=== PATIENT | male | born 1960 | race Caucasian/White ===

== ENCOUNTER → 2016-05-27 | Outpatient (REF) | payer BC | LOC: M SFHCLACO 08:08 | PROVIDERS: ATTEND Physician Assistant | DX: E78.2 Mixed hyperlipidemia (principal); K51.90 Ulcerative colitis, unspecified, without complications; Z53.8 Procedure and treatment not carried out for other reasons ==

== ENCOUNTER → 2017-02-03 | Outpatient (REF) | payer BC ==
[2017-02-03 14:42] LABS: MEAN CORPUSCULAR HGB CONC 33.5 g/dl (32.0-36.5); MEAN CORPUSCULAR VOLUME 95.7 fl (80.0-96.0); RED CELL DISTRIBUTION WIDTH 12.6 % (11.5-14.5); WHITE BLOOD COUNT 9.6 K/mm3 (4.0-10.0)
[2017-02-03 14:55] LABS: ALBUMIN/GLOBULIN RATIO 1.29 (1.00-1.93); ALKALINE PHOSPHATASE 59 U/L (45-117); ALT/SGPT 46 U/L (12-78); ANION GAP 8 MEQ/L (8-16); AST/SGOT 15 U/L (15-37); BILIRUBIN,TOTAL 0.5 MG/DL (0.2-1.0); BLOOD UREA NITROGEN 16 MG/DL (7-18); CALCIUM LEVEL 8.2 MG/DL (8.5-10.1); CARBON DIOXIDE LEVEL 26 MEQ/L (21-32); CHLORIDE LEVEL 109 MEQ/L (98-107); CHOLESTEROL LEVEL 141 MG/DL (<200); CREATININE FOR GFR 0.61 MG/DL (0.70-1.30); GLOMERULAR FILTRATION RATE > 60.0 (>56); GLUCOSE, FASTING 96 MG/DL (70-105); POTASSIUM SERUM 3.9 MEQ/L (3.5-5.1); SODIUM LEVEL 143 MEQ/L (136-145); TOTAL PROTEIN 7.1 GM/DL (6.4-8.2); TRIGLYCERIDES LEVEL 94 MG/DL (<150)
== END ==
LOC: M SFHCLACO 08:04
PROVIDERS: ATTEND Physician Assistant
DX: E78.2 Mixed hyperlipidemia (principal); K51.90 Ulcerative colitis, unspecified, without complications; Z12.5 Encounter for screening for malignant neoplasm of prostate
CPT/HCPCS: 80053; 80061; 85027; G0103

== ENCOUNTER → 2017-08-04 | Outpatient (REF) | payer BC ==
[2017-08-04 15:07] LABS: ALBUMIN/GLOBULIN RATIO 1.21 (1.00-1.93); ALKALINE PHOSPHATASE 58 U/L (45-117); ALT/SGPT 61 U/L (12-78); ANION GAP 8 MEQ/L (8-16); AST/SGOT 20 U/L (7-37); BILIRUBIN,TOTAL 0.6 MG/DL (0.2-1.0); BLOOD UREA NITROGEN 23 MG/DL (7-18); CALCIUM LEVEL 9.1 MG/DL (8.5-10.1); CARBON DIOXIDE LEVEL 31 MEQ/L (21-32); CHLORIDE LEVEL 105 MEQ/L (98-107); CHOLESTEROL LEVEL 168 MG/DL (<200); CREATININE FOR GFR 0.76 MG/DL (0.70-1.30); GLOMERULAR FILTRATION RATE > 60.0 (>56); GLUCOSE, FASTING 88 MG/DL (70-100); HDL CHOLESTEROL 32 MG/DL (>40); LDL CHOLESTEROL 94.4 MG/DL (<100); NON-HDL-C 136 MG/DL; POTASSIUM SERUM 4.4 MEQ/L (3.5-5.1); SODIUM LEVEL 144 MEQ/L (136-145); TOTAL PROTEIN 7.3 GM/DL (6.4-8.2); TRIGLYCERIDES LEVEL 208 MG/DL (<150)
== END ==
LOC: M SFHCLACO 08:02
DX: E78.2 Mixed hyperlipidemia (principal); K51.90 Ulcerative colitis, unspecified, without complications
CPT/HCPCS: 80053

== ENCOUNTER → 2018-10-12 | Outpatient (REF) | payer BC | LOC: M SFHCLERA 18:34 | PROVIDERS: ATTEND Physician Assistant | DX: L91.8 Other hypertrophic disorders of the skin (principal); C44.529 Squamous cell carcinoma of skin of other part of trunk ==

== ENCOUNTER → 2020-04-04 | Outpatient (REF) | payer BC ==
[2020-04-04 13:13] LABS: ALBUMIN 4.1 GM/DL (3.2-5.2); ALT/SGPT 63 U/L (12-78); BILIRUBIN,TOTAL 0.8 MG/DL (0.2-1.0); BLOOD UREA NITROGEN 17 MG/DL (7-18); CALCIUM LEVEL 9.1 MG/DL (8.8-10.2); CARBON DIOXIDE LEVEL 28 MEQ/L (21-32); CHLORIDE LEVEL 106 MEQ/L (98-107); CHOLESTEROL LEVEL 121 MG/DL (<200); CHOLESTEROL RISK RATIO 3.457 (<5); CREATININE FOR GFR 0.78 MG/DL (0.70-1.30); GLOMERULAR FILTRATION RATE > 60.0 (>49); GLUCOSE, FASTING 81 MG/DL (70-100); HDL CHOLESTEROL 35 MG/DL (>40); LDL CHOLESTEROL 52 MG/DL (<100); NON-HDL-C 86 MG/DL; POTASSIUM SERUM 4.3 MEQ/L (3.5-5.1); SODIUM LEVEL 141 MEQ/L (136-145); TRIGLYCERIDES LEVEL 170 MG/DL (<150)
== END ==
LOC: M SFHCADAM 09:15
PROVIDERS: ATTEND Physician Assistant
DX: E78.2 Mixed hyperlipidemia (principal); I10 Essential (primary) hypertension

== ENCOUNTER → 2020-04-04 | Outpatient (CLI) | payer BC ==
--- NOTE | 2020-04-05 03:59 | REP ---
INDICATION: PAIN IN BOTH SHOULDERS COMPARISON: None. TECHNIQUE: Internal rotation, external rotation, and Y view right and left shoulder. FINDINGS: Left shoulder demonstrates subtle inferior and medial spurring along the margin of the humeral head along with subtle cortical irregularity and spurring at the acromioclavicular joint. The subacromial space is normal. A small corticated 3 mm loose body is identified overlying the greater tuberosity to the humeral head. No acute fracture or dislocation identified. Right shoulder suggests small spur along the inferior margin of the humeral head. The acromioclavicular joint is relatively normal. The subacromial space is normal. No periarticular loose bodies or calcifications are identified. No evidence for fracture or dislocation. 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 <Electronically signed by Vasile Colunga > 04/05/20 [id number]
== END ==
LOC: M ADAMS 09:20
PROVIDERS: ATTEND Physician Assistant
DX: M25.511 Pain in right shoulder (principal); M25.512 Pain in left shoulder

== ENCOUNTER → 2020-10-04 | Outpatient (REF) | payer BC ==
[2020-10-04 12:34] LABS: HEMATOCRIT 49.3 % (42.0-52.0); HEMOGLOBIN 16.2 g/dl (13.5-17.5); MEAN CORPUSCULAR HEMOGLOBIN 32.7 pg (27.0-33.0); MEAN CORPUSCULAR HGB CONC 32.9 g/dl (32.0-36.5); MEAN CORPUSCULAR VOLUME 99.4 fl (80.0-96.0); PLATELET COUNT, AUTOMATED 203 10^3/uL (150-450); RED BLOOD COUNT 4.96 10^6/uL (4.30-6.10); WHITE BLOOD COUNT 9.4 10^3/uL (4.0-10.0)
[2020-10-04 12:56] LABS: C REACTIVE PROTEIN QUANTITATIV < 0.30 MG/DL (0.00-0.30); RHEUMATOID FACTOR QUANT < 10.0 IU/ML (<15.0)
[2020-10-04 13:04] LABS: ERYTHROCYTE SEDIMENTATION RATE 1 mm/hr (0-20)
[2020-10-05 21:09] LABS: ANA (HEP2) Negative (.); Lyme Disease IgG/IgM Antibodie <0.91 ISR (0.00-0.90); Lyme Disease IgM Ab Quantitati <0.80 index (0.00-0.79)
== END ==
LOC: M SFHCADAM 07:48
PROVIDERS: ATTEND Physician Assistant
DX: Z11.9 Encounter for screening for infectious and parasitic diseases, unspecified (principal); M25.50 Pain in unspecified joint; W57.XXXD Bitten or stung by nonvenomous insect and other nonvenomous arthropods, subsequent encounter; Y92.9 Unspecified place or not applicable; Y93.9 Activity, unspecified; Y99.9 Unspecified external cause status

== ENCOUNTER → 2024-04-27 | Outpatient (REF) | payer MEDICARE ==
[2024-04-27 13:23] LABS: BASO # 0.1 10^3/uL (0.0-0.2); BASO % 0.6 % (0.0-1.0); EOS # 0.1 10^3/uL (0.0-0.5); EOS % 0.6 % (0.0-3.0); HEMATOCRIT 47.7 % (42.0-52.0); HEMOGLOBIN 15.8 g/dl (13.5-17.5); LYMPH # 1.9 10^3/uL (1.5-5.0); LYMPH % 21.4 % (24.0-44.0); MEAN CORPUSCULAR HEMOGLOBIN 32.4 pg (27.0-33.0); MEAN CORPUSCULAR HGB CONC 33.1 g/dl (32.0-36.5); MEAN CORPUSCULAR VOLUME 97.9 fl (80.0-96.0); MONO # 0.9 10^3/uL (0.0-0.8); MONO % 9.9 % (2.0-8.0); NEUTROPHILS % 67.2 % (36.0-66.0); PLATELET COUNT, AUTOMATED 215 10^3/uL (150-450); RED BLOOD COUNT 4.87 10^6/uL (4.30-6.10); WHITE BLOOD COUNT 8.9 10^3/uL (4.0-10.0)
[2024-04-27 13:52] LABS: HEMOGLOBIN A1c 5.2 % (4.0-6.0)
[2024-04-27 14:00] LABS: ALKALINE PHOSPHATASE 58 U/L (40-129); ALT/SGPT 45 U/L (7.0-40); AST/SGOT 17 U/L (<34); BILIRUBIN,TOTAL 0.7 MG/DL (0.3-1.2); BLOOD UREA NITROGEN 23 MG/DL (9-23); CALCIUM LEVEL 10.1 MG/DL (8.3-10.6); CARBON DIOXIDE LEVEL 30 MMOL/L (20-31); CHLORIDE LEVEL 108 MMOL/L (98-107); CHOLESTEROL LEVEL 130 MG/DL (<200); CHOLESTEROL RISK RATIO 3.76 (<5); CREATININE FOR GFR 0.71 MG/DL (0.70-1.30); GLOMERULAR FILTRATION RATE > 60.0 (>49); GLUCOSE, FASTING 99 MG/DL (74-106); HDL CHOLESTEROL 34.5 MG/DL (>40); LDL CHOLESTEROL 74.1 MG/DL (<100); NON-HDL-C 95.5 MG/DL; POTASSIUM SERUM 4.4 MMOL/L (3.5-5.1); SODIUM LEVEL 141 MMOL/L (136-145); TOTAL PROTEIN 7.2 G/DL (5.7-8.2); TRIGLYCERIDES LEVEL 107 MG/DL (<150)
[2024-04-27 14:01] LABS: THYROID STIMULATING HORMONE 1.153 uIU/ML (0.55-4.78)
== END ==
LOC: M SFHCADAM 09:37
PROVIDERS: ATTEND Physician Assistant Medical
DX: E78.2 Mixed hyperlipidemia (principal); I10 Essential (primary) hypertension; E55.9 Vitamin D deficiency, unspecified; R73.01 Impaired fasting glucose

== ENCOUNTER → 2024-05-12 | Outpatient (CLI) | payer MEDICARE | LOC: M RAD 14:12 | PROVIDERS: ATTEND Physician Assistant Medical | DX: J32.9 Chronic sinusitis, unspecified (principal); J34.2 Deviated nasal septum ==

== ENCOUNTER 2025-01-19 14:06 | Emergency (ER) | payer MEDICARE ==
[~2025-01-19] VITALS: Ht 167.6 cm; Wt 90.8 kg
[2025-01-19] MEDS ORDERED: CELE0.09 (14:23)
[2025-01-19] MEDS ORDERED: ROSU20TA86 (14:23)
[2025-01-19] MEDS ORDERED: SILD100T7 (14:23)
[2025-01-19] MEDS ORDERED: LORA-1041 (14:23)
[2025-01-19] MEDS ORDERED: MONT10TA97 (14:23)
[2025-01-19] MEDS ORDERED: PRED10TA2 (14:23)
[2025-01-19] MEDS ORDERED: FLUTISP (14:23)
[2025-01-19] MEDS ORDERED: LOSA100T46 (14:23)
[2025-01-19 14:47] LABS: BASO # 0.1 10^3/uL (0.0-0.2); BASO % 0.3 % (0.0-1.0); EOS # 0.1 10^3/uL (0.0-0.5); EOS % 0.4 % (0.0-3.0); LYMPH # 3.5 10^3/uL (1.5-5.0); LYMPH % 19.3 % (24.0-44.0); MONO # 1.6 10^3/uL (0.0-0.8); MONO % 8.9 % (2.0-8.0); NEUTROPHILS # 12.7 10^3/uL (1.5-8.5); NEUTROPHILS % 70.1 % (36.0-66.0); PLATELET COUNT, AUTOMATED 177 10^3/uL (150-450)
[2025-01-19 15:12] LABS: ALT/SGPT 32 U/L (7.0-40); AST/SGOT 15 U/L (<34); CALCIUM LEVEL 8.5 MG/DL (8.3-10.6); CARBON DIOXIDE LEVEL 27 MMOL/L (20-31); CHLORIDE LEVEL 107 MMOL/L (98-107); CREATININE FOR GFR 0.68 MG/DL (0.70-1.30); GLOMERULAR FILTRATION RATE > 90.0 (>49); POTASSIUM SERUM 3.8 MMOL/L (3.5-5.1); SODIUM LEVEL 144 MMOL/L (136-145)
[2025-01-19 15:16] LABS: CK-MB VALUE MASS < 1.0 NG/ML (<3.6); CPK CREATINE PHOSPHOKINASE 64 U/L (46-171)
[2025-01-19] MEDS ORDERED: ISOVUE-370 76% 100 ML VIAL As Ordered ONE (15:16)
[2025-01-19] MEDS: MECLIZINE 25 MG TABLET PO ONE (15:49)
[2025-01-19 15:59] VITALS: BP 128/77; TEMP 97.2
[2025-01-19 16:14] VITALS: BP 142/83; TEMP 97.5
[2025-01-19 16:27] LABS: CK-MB VALUE MASS < 1.0 NG/ML (<3.6)
[2025-01-19 16:28] LABS: CPK CREATINE PHOSPHOKINASE 63 U/L (46-171)
[2025-01-19 16:33] VITALS: BP 133/79; TEMP 98.3
[2025-01-19 16:49] VITALS: BP 134/81; TEMP 98.6
[2025-01-19] MEDS ORDERED: MECL-209 PO (18:17)
[2025-01-19 18:30] VITALS: BP 139/91; TEMP 98.3; O2SAT 98
== END 2025-01-19 18:45 | disposition home or self-care (01) ==
LOC: EDBD 14:06 → M ED 14:59
DX: R42 Dizziness and giddiness (principal); I10 Essential (primary) hypertension; E55.9 Vitamin D deficiency, unspecified
CPT/HCPCS: 70450; 70496; 70498; 71046; 80053; 82550; 82553; 84484; 85025; 93005; 93041; 94760; 99285; Q9967

== ENCOUNTER → 2025-05-02 | Outpatient (REF) | payer MEDICARE ==
[~2025-05-02] MED LIST: CELE0.09; CELE1CAP4 PO; CVS1CAP2 PO; FLON1SPR; FLUTISP; LORA-1041; LORA-243 PO; LOSA100T46; LOSA100T46 PO; MECL-209 PO; MONT10TA97; OMEG10002 PO; PRED10TA2; ROSU20TA86; ROSU20TA86 PO; SILD100T PO; SILD100T7; THERTAB52 PO; VITA-243 PO; VITA100093 PO
[2025-05-02 15:20] LABS: ALT/SGPT 40 U/L (7.0-40); AST/SGOT 22 U/L (<34); BASO # 0.1 10^3/uL (0.0-0.2); BASO % 0.6 % (0.0-1.0); CALCIUM LEVEL 9.2 MG/DL (8.3-10.6); CARBON DIOXIDE LEVEL 30 MMOL/L (20-31); CHLORIDE LEVEL 107 MMOL/L (98-107); CHOLESTEROL LEVEL 137 MG/DL (<200); CHOLESTEROL RISK RATIO 3.94 (<5); CREATININE FOR GFR 0.68 MG/DL (0.70-1.30); EOS # 0.1 10^3/uL (0.0-0.5); EOS % 0.5 % (0.0-3.0); FREE T4 0.95 NG/DL (0.89-1.76); GLOMERULAR FILTRATION RATE > 90.0 (>49); LDL CHOLESTEROL 68.3 MG/DL (<100); LYMPH # 1.7 10^3/uL (1.5-5.0); LYMPH % 18.2 % (24.0-44.0); MONO # 1.1 10^3/uL (0.0-0.8); MONO % 11.2 % (2.0-8.0); NEUTROPHILS # 6.5 10^3/uL (1.5-8.5); NEUTROPHILS % 69.1 % (36.0-66.0); NON-HDL-C 102.3 MG/DL; PLATELET COUNT, AUTOMATED 199 10^3/uL (150-450); POTASSIUM SERUM 4.2 MMOL/L (3.5-5.1); SODIUM LEVEL 143 MMOL/L (136-145); TRIGLYCERIDES LEVEL 170 MG/DL (<150)
[2025-05-02 15:23] LABS: TOTAL 25(OH) VITAMIN D 53.0 NG/ML (20.0-100.0)
[2025-05-02 15:47] LABS: ESTIMATED AVERAGE GLUCOSE 103.0 MG/DL (60-110)
== END ==
LOC: M SFHCADAM 10:28
PROVIDERS: ATTEND Physician Assistant Medical
DX: E78.2 Mixed hyperlipidemia (principal); I10 Essential (primary) hypertension; E55.9 Vitamin D deficiency, unspecified; R73.01 Impaired fasting glucose

== ENCOUNTER 2025-05-11 09:27 | Day surgery (SDC) | payer MEDICARE ==
[~2025-05-11] VITALS: Ht 167.6 cm; Wt 90.2 kg
[~2025-05-11 09:27] MED LIST changes: +dexAMETHasone 4 MG/ML 1 ML VIAL IV ONE
[2025-05-11] MEDS ORDERED: dexAMETHasone 4 MG/ML 1 ML VIAL As Ordered ONE (11:30)
[2025-05-11] MEDS ORDERED: ROCURONIUM BROMIDE 50MG/5ML VIAL As Ordered ONE (11:31)
[2025-05-11] MEDS ORDERED: ONDANSETRON 4MG/2ML VIAL As Ordered ONE (11:31)
[2025-05-11] MEDS ORDERED: LIDOCAINE 2% 100 MG/5 ML SDV (FOR ANES.) As Ordered ONE (11:33)
[2025-05-11] MEDS ORDERED: SUGAMMADEX SODIUM 200 MG/2 ML VIAL As Ordered ONE (11:34)
[2025-05-11] MEDS ORDERED: MIDAZOLAM INJ 2 MG/2 ML VIAL As Ordered ONE (11:56)
[2025-05-11] MEDS ORDERED: ACETAMINOPHEN 1000MG/100ML IV BAG As Ordered ONE (11:59)
[2025-05-11] MEDS: METHYLENE BLUE 0.5% (5 MG/ML) 10 ML AMP As Ordered ONE (13:12)
[2025-05-11] MEDS: EPINEPHrine 1 MG/ML INJ 30 ML MD-VIAL As Ordered ONE (13:12)
[2025-05-11] MEDS: LIDOCAINE W/EPINEPHrine 1% 20 ML VIAL As Ordered ONE (13:14)
[2025-05-11] MEDS ORDERED: ESMOLOL 100 MG/10 ML VIAL As Ordered ONE (13:22)
[2025-05-11] MEDS: SODIUM CHLORIDE 0.9% NASAL GEL 15GM (AYR) As Ordered ONE (13:53)
[2025-05-11] MEDS ORDERED: ONDANSETRON 4MG/2ML VIAL IV PRN (14:10)
[2025-05-11 15:50] VITALS: BP 137/80; TEMP 98.3; O2SAT 95
== END 2025-05-11 15:56 | disposition home or self-care (01) ==
LOC: M SDC 09:27
PROVIDERS: ATTEND Otolaryngology
DX: J34.2 Deviated nasal septum (principal); J34.3 Hypertrophy of nasal turbinates; J31.0 Chronic rhinitis; I10 Essential (primary) hypertension; E78.2 Mixed hyperlipidemia; Z79.899 Other long term (current) drug therapy; Z90.49 Acquired absence of other specified parts of digestive tract; Z87.19 Personal history of other diseases of the digestive system
CPT/HCPCS: 30520; 30802; 88300; J0131; J0165; J1100; J1805; J2250; J2405; J3010; J3490